=== PATIENT | female | born 1965 | race Caucasian/White ===

== ENCOUNTER 2022-02-19 15:02 | Outpatient (CLI) | payer BC, SELFPAY ==
--- NOTE | 2022-02-19 15:00 | CRLHL7_ITS ---
For Patients: As a result of the Century Cures Act, medical imaging exams and procedure reports are released immediately into your electronic medical record. You may view this report before your referring provider. If you have questions, please contact your health care provider. INDICATION: PELVIC PAIN COMPARISON: 07/11/2021 TECHNIQUE: 2D doan scale and color Doppler images were acquired of the pelvis using a transabdominal and transvaginal approach. FINDINGS: Sonographic images demonstrate a normal size and smooth outer contour of the uterus. Uterus measures 9.5 cm in length by 4.6 cm in AP diameter by 5.2 cm in transverse dimension. The myometrium has a heterogeneous echotexture. The endometrium measures 6 millimeters. An IUD appears to be present within the endometrial canal. The right ovary measures 2.9 x 1.8 x 2.6 cm in size and the left ovary measures 2.8 x 1.4 x 1.9 cm. The ovaries demonstrate normal arterial and venous blood flow on color Doppler analysis. There are no suspicious fluid collections within the cul-de-sac. IMPRESSION: IUD in the endometrium. Endometrial thickness 8 millimeters. Heterogeneous uterine echotexture without defined fibroid. Normal ovaries. Dictated by Fidel Toscano MD @ 02/20/2022 12:00:41 PM (Electronically Signed)
== END 2022-02-19 15:03 | disposition home or self-care (01) ==
PROVIDERS: Visit Provider Obstetrics & Gynecology
DX: R10.2 Pelvic and perineal pain (principal); R93.89 Abnormal findings on diagnostic imaging of other specified body structures
CPT/HCPCS: 76830; 76856

== ENCOUNTER 2022-02-22 10:00 | Outpatient (RCR) | payer BC, SELFPAY | END 2022-02-22 10:51 | disposition home or self-care (01) | PROVIDERS: Visit Provider Family Medicine | DX: M54.50 Low back pain, unspecified (principal); Z51.89 Encounter for other specified aftercare | CPT/HCPCS: 97110; 97112; 97140; 97161; 97162 ==

== ENCOUNTER 2022-04-15 10:25 | Outpatient (CLI) | payer BC, SELFPAY | END 2022-04-15 10:26 | disposition home or self-care (01) | PROVIDERS: Visit Provider Nurse Practitioner Family | DX: R30.0 Dysuria (principal); N39.0 Urinary tract infection, site not specified; R50.9 Fever, unspecified | CPT/HCPCS: 87086 ==

== ENCOUNTER 2023-03-29 09:00 | Outpatient (RCR) | payer BC, SELFPAY | END 2023-05-03 17:27 | disposition home or self-care (01) | PROVIDERS: Visit Provider Physician Assistant Medical | DX: M25.551 Pain in right hip (principal); S73.191D Other sprain of right hip, subsequent encounter; M62.81 Muscle weakness (generalized); M25.651 Stiffness of right hip, not elsewhere classified; Z51.89 Encounter for other specified aftercare | CPT/HCPCS: 97110; 97140; 97162 ==